=== PATIENT | female | born 1990 | race Hispanic/Latino ===

== ENCOUNTER 2022-07-14 12:19 | Emergency (ER) | payer OTHER, SELFPAY ==
[2022-07-14 12:20] VITALS: BP 118/90; PULSE 60; RESP 15; TEMP 36.8; O2SAT 100; BMI 30.4
--- NOTE | 2022-07-14 14:16 | RAD_ITS ---
STUDY: X-RAY - LEFT HAND REASON FOR EXAM: Female, 31 years old. Laceration overlying the fifth metacarpal. TECHNIQUE: 3 view(s) of the hand. COMPARISON: None. FINDINGS: Normal radiocarpal articulation. Normal distal radioulnar joint. Normal visualized carpal bones. Normal carpal articulations Normal carpometacarpal articulation of the thumb. Normal second through fifth carpometacarpal joints. Normal metacarpi. Normal metacarpophalangeal joint of the thumb. Normal interphalangeal joint of the thumb. Normal proximal and distal phalanges of the thumb. Normal metacarpophalangeal joints of the second through fifth fingers. Normal proximal and distal interphalangeal joints of the second through fifth fingers. Normal phalanges of the second through fifth fingers. Dorsal soft tissue swelling. No radiopaque foreign body is seen. RAD/Hand Min 3 Views IMPRESSION: Dorsal soft tissue swelling. No radiopaque foreign body is seen. Electronically Signed: Byron Rodriguez MD at 14:39 EDT ,
--- NOTE | 2022-07-14 14:17 | EX.ED.UPPERE ---
HPI History of Present Illness Chief Complaint: Laceration Informant: patient Onset/Context/Timing Onset: Today Narrative Narrative: Patient presents with left hand injury. Patient is non-[place] speaking but has coworker at bedside who was able to translate. Patient reportedly got her hand caught in a machine at work. She has to small lacerations over the fourth and fifth metacarpals as well as some abrasions over the base of the thumb. She is right-hand dominant. She does not know when her last tetanus update was. PFSH PFSH Medical History no medical history no medical history Allergy/AdvReac Type Severity Reaction Status Date / Time No Known Allergies Allergy Verified 07/14/22 12:19 Social History Smoking Status: Never smoker ROS ROS ED Constitutional Constitutional ED: Denies chills or fever(s) Eyes Eyes: Denies change in vision or discharge from eye(s) ENT ENT ED: Denies discharge from eye(s), rhinorrhea or sore throat Cardiovascular Cardiovascular: Denies chest pain or palpitations Respiratory/Chest Respiratory/Chest: Denies cough or dyspnea Gastrointestinal Gastrointestinal: Denies abdominal pain, nausea or vomiting Genitourinary Genitourinary ED: Denies dysuria Musculoskeletal Musculoskeletal: Reports extremity pain; Denies back pain Integumentary Reports Abrasions; Denies rash Neurologic Neurologic: Denies headache(s) or weakness Psychiatric Psychiatric: Denies anxiety or depression Allergic/Immunologic Allergic/Immunologic ED: Denies lip swelling or urticaria EXAM Physical Exam Const Vital Signs: 07/14/22 12:20 Temperature 98.3 F Temperature Source Temporal Pulse Rate 60 Respiratory Rate 15 Blood Pressure 118/90 H Blood Pressure Mean 99 Pulse Ox 100 Oxygen Delivery Method Room Air Positive well nourished and well developed General Appearance ED: well developed HEENT Reports normocephalic and head/scalp atraumatic Eyes PERRL and EOMs intact bilaterally Neck supple Chest Wall inspection of chest normal and palpation of chest normal Resp normal respiratory effort and clear to auscultation bilaterally Cardio regular rate and regular rhythm GI normal to inspection, nondistended, normoactive bowel sounds Palpation: soft Extremity Extremity Narrative: Mild edema noted to the left hand. 1 cm lacerations noted over the fourth and fifth metacarpals on the dorsal aspect of the hand. Superficial abrasions to the base of the thumb. Patient able to wiggle all digits and has good sensation and cap refill. Neuro oriented x3 and no sensory deficits noted Sensorium / Orientation: alert Motor Exam: strength 5/5 throughout Psych Mood & Affect: tearful Skin Skin Narrative: Lacerations as noted above. MDM MDM MDM Narrative Medical decision making narrative: Patient was given Naprosyn for pain. Left hand x-rays ordered. Tetanus update provided. Radiography Diagnostic Testing: Radiology Impression Hand X-Ray 07/14/22 14:16 IMPRESSION: Dorsal soft tissue swelling. No radiopaque foreign body is seen. Electronically Signed: Byron Rodriguez MD at 14:39 EDT , Treatment and Re-Evaluation Narrative: Left hand x-rays from interpretation reveal no bony fracture. Soft tissue swelling noted. Radiology interpretation is reviewed and agrees. The 2 lacerations on the left hand were anesthetized with a total of 3 cc 1% lidocaine. Wounds are cleansed and irrigated. Each laceration is closed with 2 simple interrupted sutures of 5-0 nylon for a total of 4 stitches. Manufacturing Technology Professor iPad used to relay test results, findings, treatment, and follow-up to the patient and significant other at bedside. Discharge Plan Triage Chief Complaint: Laceration ED Provider: Zoila Staples Dx/Rx/DC Orders Clinical Impression: Crushing injury of left hand, Laceration of left hand Instructions: ED Crush Injury, Hand, ED Laceration, Hand: All Closures Stand Alone Forms: Work Status Form Primary Care Provider: Care Physician,No Primary Referrals: [facility] [Group of Physicians] - 7 Days for suture removal NOT,DEFINED [Non-Staff] - Print Language: Swedish Disposition Disposition: Home, Self Care
[2022-07-14] MEDS: Naproxen 500 MG Tablet PO (14:31)
[2022-07-14] MEDS: Diphth,Pertuss(Acell),Tet Vac 0.5 ML Vial IM (14:31)
--- NOTE | 2022-07-14 14:35 | ED.RN ---
PATIENT INSTRUCTED TO GO TO [facility] SCREEN AFTER DISCHARGE.
[2022-07-14] MEDS: Lidocaine 1% (20 ml mdv) 20 ML Vial INFILT (15:20)
== END 2022-07-14 15:56 | disposition home or self-care (01) ==
PROVIDERS: Emergency Provider Emergency Medicine; Visit Provider Emergency Medicine
DX: S61.412A Laceration without foreign body of left hand, initial encounter (principal); W23.0XXA Caught, crushed, jammed, or pinched between moving objects, initial encounter; Z23 Encounter for immunization
CPT/HCPCS: 12001; 73130; 90715; 96372; 99283; A4216

== ENCOUNTER → 2022-08-11 | Outpatient (CLI) | payer OTHER, SELFPAY ==
--- NOTE | 2022-08-11 14:08 | MRI_ITS ---
EXAM: MR LEFT UPPER EXTREMITY WITHOUT INTRAVENOUS CONTRAST, HAND CLINICAL INDICATION: left hand crush injury TECHNIQUE: Multiplanar and multisequence MR images of the left hand without intravenous contrast. This report was created using [employer] report AF[employer] technology. COMPARISON: None. FINDINGS: LIGAMENTS: MEDIAL COLLATERAL: Unremarkable. Intact. LATERAL COLLATERAL: Unremarkable. Intact. RADIAL COLLATERAL: Unremarkable. Intact. ULNAR COLLATERAL: Unremarkable. Intact. TENDONS: FLEXOR: Unremarkable. Intact. EXTENSOR: Unremarkable. Intact. MUSCLES: Thickening/edema involving the thenar musculature. FLUID: Unremarkable. No joint effusion. BONES/JOINTS: No bone marrow signal alterations. 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 At least mild degenerative changes of the triscaphe joint. Normal alignment. No fracture. No joint effusion. OTHER SOFT TISSUES: Subcutaneous edema in the area of the thenar region. No significant hemorrhage or hematoma. Subcutaneous edema involving the thenar region from trauma. Ankle tendons are normal. OTHER FINDINGS: Neurovascular structures are normal. Palmar aponeurosis is unremarkable. MRI/Upper Ext/No Jt/ wo IMPRESSION: No acute or healing fracture or malignant. Subcutaneous edema in the area of thenar region without organized fluid collection or mass. Electronically Signed: Robert King MD at 4:28 EST ,
== END | disposition home or self-care (01) ==
LOC: MRI 14:07
PROVIDERS: Referring Provider Physician Assistant; Visit Provider Physician Assistant
DX: S67.22XA Crushing injury of left hand, initial encounter (principal); S61.412A Laceration without foreign body of left hand, initial encounter
CPT/HCPCS: 73218